=== PATIENT | male | born 1935 | race Caucasian/White ===

== ENCOUNTER 2024-01-29 19:55 | Observation (INO) | payer OTHER ==
[2024-01-29 20:01] VITALS: BMI 33.0
[2024-01-29] MEDS ORDERED: BACITRACIN ZINC 15 GM TUBE TOPICAL OINTMENT ONE (21:09)
[2024-01-29 22:01] LABS: BASO % 0.6 % (0-2.0); EOS % 1.8 % (0-4.5); HEMATOCRIT 36.3 % (35.4-49); LYMPH % 15.8 % (8-40); MCH 32.6 pg (25.7-33.7); MCHC 32.9 g/dl (32.0-35.9); MEAN CELL VOLUME 99.2 fl (80-96); MEAN PLT VOLUME 9.4 fl (7.5-11.1); MONO % 10.7 % (3.8-10.2); NEUT % 71.1 % (42.8-82.8); PLATELET COUNT 234 10^3/uL (134-434); RBC 3.66 M/mm3 (4.00-5.60); WHITE BLOOD COUNT 13.7 K/mm3 (4.0-10.0)
[2024-01-29 22:12] LABS: INR 1.09 (0.83-1.09); PROTHROMBIN TIME (PATIENT) 12.5 SEC (9.7-13.0)
[2024-01-29 22:15] LABS: ACTIVATED PTT 29.4 SECONDS (25.2-36.5)
[2024-01-29 22:16] LABS: POTASSIUM 4.1 mmol/L (3.5-5.1)
[2024-01-29 22:20] LABS: ALBUMIN 3.3 g/dl (3.4-5.0); BLOOD UREA NITROGEN 35.3 mg/dL (7-18); CALCIUM 9.3 mg/dL (8.5-10.1)
[2024-01-29 22:23] LABS: PHOSPHOROUS 2.5 mg/dL (2.5-4.9)
[2024-01-29 22:25] LABS: BILIRUBIN,TOTAL 0.3 mg/dL (0.2-1); TOT PROT 6.3 g/dl (6.4-8.2)
[2024-01-29] MEDS: SODIUM CHLORIDE 0.9% 500 ML INFUS.BAG IV ONE (22:54)
[2024-01-29] MEDS ORDERED: ASPIRIN 325 MG TABLET ONE (23:38)
[2024-01-29] MEDS: ASPIRIN 325 MG ENTERIC COATED TABLET (FP) PO ONE (23:53)
[2024-01-30] MEDS: LACTATED RINGERS SOLUTION 1000 ML INFUS.BAG IV ONE (03:45)
[2024-01-30 05:48] LABS: URINE APPEARANCE CLEAR; URINE BILIRUBIN NEGATIVE (NEGATIVE); URINE COLOR YELLOW; URINE GLUCOSE (UA) NEGATIVE (NEGATIVE); URINE KETONE NEGATIVE (NEGATIVE); URINE LEUK ESTERASE NEGATIVE (NEGATIVE); URINE NITRITE NEGATIVE (NEGATIVE); URINE PROTEIN NEGATIVE (NEGATIVE); URINE UROBILINOGEN 0.2 mg/dL (0.2-1.0)
[2024-01-30 07:20] LABS: HEMATOCRIT 34.1 % (35.4-49); HEMOGLOBIN 11.5 GM/dL (11.7-16.9); MCH 33.2 pg (25.7-33.7); MCHC 33.5 g/dl (32.0-35.9); MEAN PLT VOLUME 9.9 fl (7.5-11.1); PLATELET COUNT 208 10^3/uL (134-434); RBC 3.45 M/mm3 (4.00-5.60); RDW 12.8 % (11.9-15.9); WHITE BLOOD COUNT 11.4 K/mm3 (4.0-10.0)
[2024-01-30 07:37] LABS: CALCIUM 9.1 mg/dL (8.5-10.1)
[2024-01-30 07:38] LABS: BLOOD UREA NITROGEN 29.2 mg/dL (7-18); MAGNESIUM 1.9 mg/dL (1.8-2.4)
[2024-01-30 07:41] LABS: CREATININE 0.9 mg/dL (0.55-1.3); PHOSPHOROUS 2.2 mg/dL (2.5-4.9)
[2024-01-30 07:43] LABS: BILIRUBIN,TOTAL 0.4 mg/dL (0.2-1); TOT PROT 5.6 g/dl (6.4-8.2)
[2024-01-30] MEDS ORDERED: PATIENT'S OWN MEDICATION (NON-FORMULARY) (Valsartan/Hydrochlorothiazide [Valsartan-Hctz 32 PO SCH (10:00)
[2024-01-30] MEDS ORDERED: HYDROCHLOROTHIAZIDE 25 MG TABLET (FP) ONE (12:37)
[2024-01-30 12:57] LABS: N-TERMINAL BNP 184.5 pg/ml (5-450)
[2024-01-30] MEDS: CEFUROXIME AXETIL 500 MG TABLET PO SCH (13:53)
[2024-01-30] MEDS: HYDROCHLOROTHIAZIDE 25 MG TABLET (FP) PO SCH (13:53)
[2024-01-30] MEDS: VALSARTAN 160 MG TABLET PO SCH (13:53)
[2024-01-30] MEDS ORDERED: NAPH,MB-DB/K PH,MBDB POWDER PACKET ONE (15:40)
[2024-01-30] MEDS: NAPH,MB-DB/K PH,MBDB POWDER PACKET PO ONE (15:41)
[2024-01-30 15:53] VITALS: BP 137/67; PULSE 79; RESP 18; TEMP 98.8
[2024-01-30] MEDS ORDERED: CELECOXIB 200 MG CAPSULE PO SCH (22:00)
== END 2024-01-30 16:30 | disposition home or self-care (01) ==
LOC: JER 19:55 → UNDOADMOB 23:23 → JERBED 23:23 → INTOOBSV 23:23 → JERBED 01-30 13:53
PROVIDERS: ADMIT Student in an Organized Health Care Education/Training Program; ATTEND Internal Medicine
PROC: 3E0337Z Introduction of Electrolytic and Water Balance Substance into Peripheral Vein, Percutaneous Approach (ICD-10-PCS; principal; 2024-01-30)
DX: R42 Dizziness and giddiness (principal); J01.90 Acute sinusitis, unspecified; I50.32 Chronic diastolic (congestive) heart failure; M41.9 Scoliosis, unspecified; B96.89 Other specified bacterial agents as the cause of diseases classified elsewhere; R77.8 Other specified abnormalities of plasma proteins; M54.9 Dorsalgia, unspecified; W18.39XA Other fall on same level, initial encounter; Y93.89 Activity, other specified; Y92.008 Other place in unspecified non-institutional (private) residence as the place of occurrence of the external cause; G89.29 Other chronic pain; M51.86 Other intervertebral disc disorders, lumbar region
CPT/HCPCS: 0241U-QW; 36415; 70450-TC; 71045-TC-FY; 80053; 81003; 83735; 83880; 84100; 84484; 85025; 85027; 85610; 85730; 86850; 86900; 86901; 87086; 93005; 93010; 93306-TC; 96360; 97116-GP; 97161-GP; 99285-25; G0378